=== PATIENT | female | born 1970 | race Two or more races ===

== ENCOUNTER 2017-10-17 12:26 | Day surgery (SDC) | payer OTHER ==
[~2017-10-17] VITALS: Ht 162.6 cm; Wt 79.0 kg
[~2017-10-17 12:26] MED LIST: CHOL500022 PO; CLON0.5T PO; CYCL10TA PO; SERT-132 PO; zyrtec
--- NOTE | 2017-10-17 13:05 | PD.VS.PN ---
Pre-operative Note Pre-operative diagnosis: R LE venous insufficiency Planned procedure: R GSV RFA Interval History: Pt has been feeling well, no changes in health that would preclude OR Labs: none needed Blood: none needed Imaging: duplex reviewed Orders: NPO Ancef 2g IV OCTOR Post-operative destination: DOCU Operative site marked: Yes Consent: Informed consent has been obtained from Aury Coronel. I have explained the procedure in detail and discussed the risks, benefits, and potential complications. All questions have been answered. Patient contact information: ([place]) [phone] Jeremiah Hutchison MD Oct 17, 2017 13:04
[2017-10-17 13:23] VITALS: BP 134/84; PULSE 72; RESP 16; TEMP 98; O2SAT 97
[2017-10-17] MEDS ORDERED: LIDOCAINE HCL 1% PF 30 ML VIAL ONE (14:20)
[2017-10-17] MEDS ORDERED: SODIUM BICARBONATE 8.4% INJ 50 ML ONE (14:21)
[2017-10-17] MEDS ORDERED: MIDAZOLAM HCL 2 MG/2 ML VIAL ONE (14:21)
[2017-10-17] MEDS ORDERED: LIDOCAINE 2%/EPINEPHrine 1:100,000 50ML MDV ONE (14:24)
[2017-10-17] MEDS ORDERED: ceFAZolin INJ 1,000 MG VIAL ONE (14:29)
[2017-10-17] MEDS ORDERED: MIDAZOLAM HCL 5 MG/5 ML VIAL ONE (14:33)
--- NOTE | 2017-10-17 14:52 | HHI.PR ---
cc: Jeremiah Hutchison MD Immediate Post Op Note Procedure Date: Oct 17, 2017 Pre Op Diagnosis: R LE venous insufficiency Post Op Diagnosis: R LE venous insufficiency Surgeon: Jeremiah Hutchison Parts Counter Clerk(s): IESHA Whitfield Procedure: R GSV RFA Findings: successful ablation, no DVT after RFA Complications: none Specimen(s) removed: none Anesthesia: MAC Drains: None Patient to: Other (DOCU) Jeremiah Hutchison MD Oct 17, 2017 14:52
[2017-10-17 15:00] LABS: BICARBONATE 27.6 MEQ/L (21.0-32.0); CALCIUM 8.9 MG/DL (8.5-10.1); CREATININE 0.6 MG/DL (0.50-1.00)
--- NOTE | 2017-10-17 15:08 | MP ---
cc: Jeremiah Hutchison MD DATE OF OPERATION: 10/17/2017 PREOPERATIVE DIAGNOSIS: Right lower extremity venous insufficiency. POSTOPERATIVE DIAGNOSIS: Right lower extremity venous insufficiency. PROCEDURE PERFORMED: Right great saphenous vein radiofrequency ablation. ATTENDING SURGEON: Jeremiah Hutchison MD ANESTHESIA: Local with sedation. INDICATIONS: Ms. Coronel is a 47-year-old lady with right lower extremity venous insufficiency. She has failed compression therapy and she was offered an ablation. She accepted and wants to proceed with the procedure. DESCRIPTION OF PROCEDURE: Informed consent was obtained from the patient. She was taken to the operating room and placed supine on the operating table. An appropriate timeout was taken to ensure the patient's identity, the operative site and side of the procedure. The administration of 2 grams of Ancef was initiated prior to skin incision and will be discontinued after single preoperative dose. Everyone in the room agreed with timeout and we proceeded. Her right leg was prepped and draped and after infiltration of 1% lidocaine a 21-gauge micropuncture needle was used to access the right great saphenous vein in the mid calf. This was exchanged using Seldinger technique for a 7-Yoruba sheath through which a venous ClosureFast catheter was introduced. The catheter was positioned ultrasonographically to 2 cm from the saphenofemoral junction and the rach-saphenous tumescence was infiltrated. With adequate tumescence the patient's right great saphenous vein was ablated in segments. Catheter and sheath were removed and ultrasound confirmed no DVT. Manual pressure was held for hemostasis and the leg was wrapped in Flash bandage. There were no complications. I was present and scrubbed and performed the entire procedure. Jeremiah Hutchison MD RJF/TL , 02:53 PM , 03:07 PM
== END 2017-10-17 16:40 | disposition home or self-care (01) ==
LOC: HDIC 12:26 → HDOC 12:26
PROVIDERS: ATTEND Surgery
DX: I87.2 Venous insufficiency (chronic) (peripheral) (principal)
CPT/HCPCS: 36475; 80048; 99152; 99153; J0690; J2250; J3010